=== PATIENT | female | born 1995 | race Caucasian/White ===

== ENCOUNTER 2018-05-11 18:32 | Emergency (ER) | payer MEDICAID ==
[~2018-05-11] VITALS: Ht 157.5 cm; Wt 59.7 kg
[2018-05-11] MEDS ORDERED: ONDA4TAB6 PO (18:55)
[2018-05-11] MEDS ORDERED: OMEP20TA23 PO (18:55)
[2018-05-11] MEDS ORDERED: AMOX500C2 PO (18:56)
[2018-05-11 19:05] VITALS: BP 110/58
== END 2018-05-11 19:07 | disposition home or self-care (01) ==
LOC: ER 18:33
DX: J02.9 Acute pharyngitis, unspecified (principal); R53.83 Other fatigue; K21.9 Gastro-esophageal reflux disease without esophagitis; Z88.1 Allergy status to other antibiotic agents
CPT/HCPCS: 99283

== ENCOUNTER 2018-05-16 16:03 | Emergency (ER) | payer MEDICAID ==
[~2018-05-16] VITALS: Ht 157.5 cm; Wt 56.8 kg
[~2018-05-16 16:03] MED LIST: AMOX500C2 PO; OMEP20TA23 PO; ONDA4TAB6 PO
[2018-05-16 16:34] VITALS: BP 112/65
== END 2018-05-16 16:57 | disposition home or self-care (01) ==
LOC: ER 16:03
DX: L08.9 Local infection of the skin and subcutaneous tissue, unspecified (principal); K21.9 Gastro-esophageal reflux disease without esophagitis; Z88.1 Allergy status to other antibiotic agents; Z79.2 Long term (current) use of antibiotics; Z79.899 Other long term (current) drug therapy
CPT/HCPCS: 99283

== ENCOUNTER 2018-08-26 15:20 | Emergency (ER) | payer MEDICAID ==
[~2018-08-26] VITALS: Ht 157.5 cm; Wt 60.5 kg
[~2018-08-26 15:20] MED LIST changes: -AMOX500C2 PO
[2018-08-26 15:26] VITALS: BP 113/69
== END 2018-08-26 16:14 | disposition home or self-care (01) ==
LOC: ER 15:21
DX: J02.8 Acute pharyngitis due to other specified organisms (principal); K21.9 Gastro-esophageal reflux disease without esophagitis; F12.90 Cannabis use, unspecified, uncomplicated; F17.200 Nicotine dependence, unspecified, uncomplicated; Z88.1 Allergy status to other antibiotic agents; Z79.899 Other long term (current) drug therapy
CPT/HCPCS: 87081; 87880; 99283

== ENCOUNTER 2020-01-21 17:32 | Emergency (ER) | payer MEDICAID ==
[~2020-01-21] VITALS: Ht 157.5 cm; Wt 59.0 kg
[2020-01-21 17:36] VITALS: BP 124/74
== END 2020-01-21 20:14 | disposition home or self-care (01) ==
LOC: ER 17:32
DX: J06.9 Acute upper respiratory infection, unspecified (principal); R09.89 Other specified symptoms and signs involving the circulatory and respiratory systems; Z20.828 Contact with and (suspected) exposure to other viral communicable diseases; H92.01 Otalgia, right ear; K21.9 Gastro-esophageal reflux disease without esophagitis; F12.90 Cannabis use, unspecified, uncomplicated; Z88.1 Allergy status to other antibiotic agents; Z72.89 Other problems related to lifestyle; Z79.899 Other long term (current) drug therapy
CPT/HCPCS: 36415; 99283; U0003

== ENCOUNTER 2020-03-09 12:00 | Emergency (ER) | payer MEDICAID ==
[~2020-03-09] VITALS: Ht 157.5 cm; Wt 53.0 kg
[2020-03-09 12:13] VITALS: BP 124/81
== END 2020-03-09 12:53 | disposition home or self-care (01) ==
LOC: ER 12:00
DX: J39.2 Other diseases of pharynx (principal); B34.9 Viral infection, unspecified; J02.9 Acute pharyngitis, unspecified; R53.83 Other fatigue; K21.9 Gastro-esophageal reflux disease without esophagitis; F12.90 Cannabis use, unspecified, uncomplicated; Z88.1 Allergy status to other antibiotic agents; Z79.899 Other long term (current) drug therapy
CPT/HCPCS: 99281

== ENCOUNTER 2020-05-20 23:20 | Emergency (ER) | payer MEDICAID ==
[~2020-05-20] VITALS: Ht 157.5 cm; Wt 58.0 kg
[2020-05-20] MEDS ORDERED: ibuprofen 200mg tablet PO ONE (23:45)
[2020-05-20] MEDS ORDERED: IBUP-1985 PO (23:59)
[2020-05-20] MEDS ORDERED: ACET-2615 PO (23:59)
[2020-05-21] MEDS ORDERED: acetaminophen 325mg tablet PO ONE
[2020-05-21] MEDS ORDERED: ibuprofen tablet 400 MG TABLET PO ONE
[2020-05-21 00:29] VITALS: BP 118/78
== END 2020-05-21 00:31 | disposition home or self-care (01) ==
LOC: ER 23:21
DX: M54.9 Dorsalgia, unspecified (principal); K21.9 Gastro-esophageal reflux disease without esophagitis; F12.10 Cannabis abuse, uncomplicated; Z88.1 Allergy status to other antibiotic agents
CPT/HCPCS: 99283

== ENCOUNTER 2025-03-01 11:25 | Emergency (ER) | payer SELFPAY ==
[~2025-03-01] VITALS: Ht 157.5 cm; Wt 66.6 kg
[~2025-03-01 11:25] MED LIST changes: +IBUP600T52 PO
[2025-03-01 11:33] VITALS: BP 107/62; PULSE 84; RESP 18; TEMP 98.3; O2SAT 98
[2025-03-01 11:57] LABS: LEUKOCYTE ESTERASE ,URINE NEGATIVE (Neg); NITRITES, URINE NEGATIVE (Neg); OCCULT BLOOD,URINE NEGATIVE (Neg)
[2025-03-01 11:58] LABS: UA COLLECTION TYPE CLN CATCH MIDSTREAM
[2025-03-01 12:15] LABS: URINE HCG NEGATIVE (NEG)
[2025-03-01 12:16] LABS: SQUAMOUS EPITHELIAL CELL,UR MANY /LPF (FEW)
[2025-03-01 12:18] LABS: MUCUS STRANDS FEW /LPF (Neg)
--- NOTE | 2025-03-01 13:07 | Physician Documentation ---
History of Present Illness ~ Chief Complaint: Urinary Symptoms Stated Complaint: URINARY COMPLICATIONS Time Seen by MD: 12:36 [facility] This is a 30-year-old female presents with two weeks of dysuria and urinary frequency, patient reports symptoms are consistent with her previous UTIs, patient reports that she does have history of frequent UTIs. Patient reports no fever, chills, or flank pain. Patient reports no new partners and is in a long- term monogamous marriage. Medication Reconciliation Allergies: Coded Allergies: ciprofloxacin (Verified Adverse Reaction, Unknown, DIZZINESS, 03/01/25) Scheduled Cephalexin*Monohydrate* (Keflex*), 1 CAP PO QID Ibuprofen (Ibuprofen), 1 TAB PO Q6H Ondansetron Hcl (Zofran), 1 TAB PO Q6H, (Reported) Miscellaneous Medications Omeprazole Magnesium (Prilosec Otc), 20 MG PO, (Reported) Past Medical History Past Medical History: GERD, UTI Past Surgical History: no surgical history Alcohol Use: Occasionally Drug Use: marijuana Lives In: Home Occupation: employed Review of Systems ROS As stated above in the HPI, otherwise all systems are reviewed and negative. Physical Exam Vital Signs: Temperature: 98.3, Heart Rate: 84, Respiratory Rate: 18, BP: 107/62, Pulse Oximetry: 98, Weight: 66.600 Oxygen Flow Rate: 0 Physical Exam VITALS: Reviewed and as above. GENERAL: Alert, nontoxic appearing, no apparent distress. RESPIRATORY: No increased work of breathing, no respiratory distress, speaking in full clear sentences BACK: No CVA tenderness Progress Results/Orders Results/Orders Completed Orders - BRAN SAWYER [employer] Hcg, Ur Ql (03/01/25 11:39) Ua W/Microscopic, Cult If Ind (03/01/25 11:42) Vital Signs 03/01/25 11:33 Temp 98.3 Pulse 84 Resp 18 B/P (MAP) 107/62 Pulse Ox 98 O2 Flow Rate 0 Laboratory Tests Test 03/01/25 11:42 Urine Specimen Description Cln catch midstream Urine Color Yellow Urine Clarity Slightly cloudy Urine pH 6.0 Urine Specific [place] 1.020 Urine Protein Negative Urine Glucose (UA) Negative Urine Ketones Negative Urine Occult Blood Negative Urine Nitrite Negative Urine Bilirubin Negative Urine Urobilinogen 0.2 Urine Leukocyte Esterase Negative Urine RBC 3-10 Urine WBC 5-10 H Urine Squamous Epithelial Cells Many Urine Transitional Epithelial Cells Moderate Urine Bacteria 1+ Urine Mucus Few Urine Culture Indicated Rejected for culture Volume Urine Centrifuged 10 ml Urine HCG, Qualitative Negative Urine Comment Medical Decision Making Findings This 30-year-old female with a history of frequent UTIs presents with dysuria and urinary frequency consistent with her previous UTI symptoms, reassuring she does not have fever, chills, or CVA tenderness. Urinalysis did demonstrate evidence of increased WBCs however simple was potentially contaminated with skin walt, though due to symptoms consistent with her typical UTI symptoms I will be prescribing a course of antibiotics. Patient is otherwise well-appearing reported no other acute symptoms or concerns and is appropriate for outpatient follow up. Urinary Diff Dx:Considerations: Include: Appendicitis, Ectopic , Ovarian torsion, PID, UTI, Vaginitis, Other (STI) Departure Time of Disposition: 13:06 Disposition: 01 HOME / SELF CARE / HOMELESS Impression: Primary Impression: Acute urinary tract infection Condition: Improved Discharge Instructions: Urinary Tract Infection, Adult Additional Instructions: Take antibiotics as prescribed. Please follow up with your primary care provider in the next few days. Please return to the emergency department for any new or worsening concerning symptoms. Referrals: NO PRIMARY CARE PROVIDER (PCP) Prescriptions Cephalexin*Monohydrate* (Keflex*) 500 Mg Capsule 1 CAP PO QID for 5 Days, #20 CAP Prov: BRAN SAWYER 03/01/25 Education Educated: Patient Educated regarding: diagnosis, treatment, prognosis, need for follow up Signature Scribe Signature: No scribe Attestation: The note accurately reflects work and decisions made by me.JANUARY Arredondo 03/01/25 20:45 BRAN ASWYER Mar 01, 2025 13:07
[2025-03-01] MEDS ORDERED: CEPH-585 PO (13:10)
== END 2025-03-01 13:16 | disposition home or self-care (01) ==
LOC: ER 11:26
DX: N39.0 Urinary tract infection, site not specified (principal); R30.0 Dysuria; R35.0 Frequency of micturition; Z88.1 Allergy status to other antibiotic agents; Z87.440 Personal history of urinary (tract) infections
CPT/HCPCS: 81001; 81025; 99283